=== PATIENT | male | born 2005 | race Hispanic/Latino ===

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

== ENCOUNTER 2024-04-01 17:01 | Emergency (ER) | payer SELFPAY ==
[~2024-04-01] VITALS: Ht 154.9 cm; Wt 72.6 kg
[~2024-04-01 17:01] MED LIST: ACET-2247 PO; D-ME1POW16 PO; IBUP-1552 PO
--- NOTE | 2024-04-01 17:33 | ERN ---
ED Note History of Present Illness Stated Complaint: ABDOMINAL PAIN,DIARRHEA Time Seen by MD: 17:04 Time Seen by Midlevel: 17:04 Dictation: The patient is a 18-year-old male with no past medical history who presents to the emergency department with complaints of generalized abdominal pain nausea, nonbloody vomiting, nonbloody diarrhea onset one week ago. Patient denies any fevers. Denies any urinary discomfort. Allergies: Coded Allergies: No Known Drug Allergies (Unverified Allergy, Unknown, 03/20/21) Home Meds Active Scripts Dicyclomine HCl (Bentyl) 20 Mg Tab, 1 TAB PO BID for irritable bowel symptoms for 30 Days, #60 TAB 0 Refills Prov:TESS MACE GLEASON GEAR GENERATOR 04/01/24 Ondansetron (Ondansetron Odt) 4 Mg Tab.rapdis, 4 MG PO Q6HPRN PRN for nausea, #16 TAB 0 Refills Prov:TESS MACE GLEASON GEAR GENERATOR 04/01/24 D-Methorphan/PE/Acetaminophen (Theraflu Ms Severe Cold Pckt) 1 Each Powd.pack, 1 EACH PO QIDP, #20 PACK Prov:LATHA GARCIA 03/20/21 Ibuprofen (Ibu) 400 Mg Tablet, 600 MG PO Q4H, #50 TAB Prov:LATHA GARCIA 03/20/21 Acetaminophen (Tylenol) 325 Mg Tablet, 650 MG PO Q4HPRN, #50 TAB Prov:LATHA GARCIA 03/20/21 Past Medical History Past Medical History: No Pertinent History Surgical History: None RN Note Reviewed/Agreed w/PFSH: Yes Review of System Dictation Constitutional: Negative for fever,chills, and weight loss Eyes: Negative for injury, pain,redness, and discharge ENT: Negative for injury,pain or swelling Cardiovascular: Negative for chest pain, palpitations, and edema Respiratory: Negative for shortness of breath, cough, and wheezing, Abdomen/GI: Negative for constipation. Positive for abdominal pain, nausea, vomiting, diarrhea. Back: Negative for injury and pain : Negative for injury, bleeding and discharge MS/Extremity: Negative for injury and deformity Skin: Negative for rash, and discoloration Neuro: Negative for headache, weakness, numbness, tingling, and seizure Psych: Negative for suicide ideation, homicidal ideation, and hallucinations Initial Vital Sign VS Vital Signs Date Time Temp Pulse Resp B/P (MAP) Pulse Ox O2 Delivery O2 Flow Rate FiO2 04/01/24 17:47 98.4 70 16 123/63 99 Room Air 0 Physical Exam Dictation Vital Signs reviewed General Appearance: Alert, oriented x 3, no acute distress, well developed, nourished. Head and Face: non-traumatic. Eyes: PERRL, pink conjunctivas, eyelid no trauma, anterior chamber with arcus senilis. Ears: Pinnas intact and no signs of trauma or erythema ear canals clear and no discharge TM no erythema Nose: No discharge, no bleeding. Oropharynx: Mouth normal, tongue pink. pharynx clear,no erythema, tonsils no exudates, no abscesses noted, mucous membrane moist Neck: Supple, non-tender, no thyromegaly, no masses, no JVD, no bruits Breast:Deferred Chest:No tenderness, no crepitus, no paradoxical movement, no retractions Lungs:Clear, well-ventilated, symmetric, no rales, no wheezing, no rhonchi, no stridor, good breath sounds bilaterally Heart: Regular rate, regular rhythm, no murmur, no gallops Vascular: no peripheral edema, Abdomen: Soft, positive bowel sounds, nondistended, no guarding, Nontender abdomen, no rebound, no masses no hepatomegaly, no splenomegaly, no Bryant's sign, no hernias. Rectal: Deferred Genital: Deferred Neurological: Normal speech, motor function intact, sensory function intact Musculoskeletal: Neck nontender, full range of motion, back nontender, full range of motion, Extremities: nontender, full range of motion Skin: Color pink, dry, no turgor, no rash, no lacerations, no abrasions, no contusions. Lymphatic: Deferred Results (Laboratory/Radiology) Laboratory/Radiology Laboratory Tests Test 04/01/24 17:26 04/01/24 18:23 White Blood Count 9.1 K/uL (4.8-10.8) Red Blood Count 5.47 MIL/uL (4.50-6.20) Hemoglobin 15.7 g/dL (14.0-18.0) Hematocrit 46.1 % (42-54) Mean Corpuscular Volume 84.3 fL (80-100) Mean Corpuscular Hemoglobin 28.7 pg (27.0-33.0) Mean Corpuscular Hemoglobin Concent 34.1 g/dL (32.0-36.0) Red Cell Distribution Width 13.2 % (11.0-15.5) Platelet Count 295 K/uL (130-400) Mean Platelet Volume 9.6 fL (7.5-10.5) Immature Granulocyte % (Auto) 0.2 % (0-1) Neutrophils (%) (Auto) 54.9 % (40.0-77.0) Lymphocytes (%) (Auto) 33.1 % (21.0-51.0) Monocytes (%) (Auto) 8.0 % (3.0-13.0) Eosinophils (%) (Auto) 3.0 % (0.0-8.0) Basophils (%) (Auto) 0.8 % (0.0-5.0) Neutrophils # (Auto) 5.0 K/uL (1.8-7.7) Lymphocytes # (Auto) 3.0 K/uL (1.0-4.8) Monocytes # (Auto) 0.7 K/uL (0.1-1.0) Eosinophils # (Auto) 0.27 K/uL (0.00-0.70) Basophils # (Auto) 0.07 K/uL (0.00-0.20) Absolute Immature Granulocyte (auto 0.02 K/uL (0-1) Nucleated Red Blood Cells 0.0 % (0.0-0.19) Sodium Level 136 mmol/L (136-145) Potassium Level 3.6 mmol/L (3.5-5.1) Chloride Level 99 mmol/L (101-111) L Carbon Dioxide Level 30 mmol/L (21-32) Blood Urea Nitrogen 10 mg/dL (7-18) Creatinine 0.8 mg/dL (0.5-1.3) Glomerular Filtration Rate Calc 131 mL/min (>90) Random Glucose 117 mg/dL (70-105) H Total Calcium 8.9 mg/dL (8.5-10.1) Total Bilirubin 0.5 mg/dL (0.2-1.0) Direct Bilirubin 0.1 mg/dL (0.0-0.3) Aspartate Amino Transf (AST/SGOT) 13 U/L (10-37) Alanine Aminotransferase (ALT/SGPT) 31 U/L (12-78) Alkaline Phosphatase 104 U/L (50-136) Total Protein 7.2 g/dL (6.0-8.3) Albumin 3.8 g/dL (3.5-5.0) Lipase 57 U/L (16-77) Urine Color LIGHT-YELLOW (YELLOW) Urine Appearance CLEAR (CLEAR) Urine pH 5.5 (5.0-8.0) Urine Specific [place] 1.025 (1.001-1.031) Urine Protein NEGATIVE mg/dL (NEGATIVE) Urine Glucose (UA) NEGATIVE mg/dL (NEGATIVE) Urine Ketones NEGATIVE mg/dL (NEGATIVE) Urine Occult Blood SMALL (NEGATIVE) H Urine Nitrate NEGATIVE (NEGATIVE) Urine Bilirubin NEGATIVE mg/dL (NEGATIVE) Urine Urobilinogen 0.2 mg/dL (0.2-1.0) Urine Leukocyte Esterase NEGATIVE Moises/uL Urine RBC 0-1 /HPF (0-1) Urine WBC 0-1 /HPF (0-1) Urine Bacteria None /HPF (None Seen) Labs Reviewed?: Yes ED Course ED Course Orders Procedure Category Date Status Time Cbc With Differential LAB 04/01/24 Complete 17:15 Urinalysis Profile LAB 04/01/24 Complete 17:15 0.9%Nacl 1000ml (Ns PHA 04/01/24 Complete 1000ml) 17:30 Morphine 4mg Syg PHA 04/01/24 Complete (Morphine 4mg Syg) 17:30 Ondansetron 4mg Inj PHA 04/01/24 Complete (Zofran 4mg Inj) 17:30 Lipase LAB 04/01/24 Complete 17:15 Basic Metabolic Panel LAB 04/01/24 Complete 17:15 Hepatic Function Panel LAB 04/01/24 Complete 17:15 Current Medications Medications (Trade) Dose Ordered Sig/Howie Route PRN Reason Start Time Stop Time Status Last Admin Dose Admin Morphine Sulfate (morPHINE 4MG SYG) 4 mg ONCE ONCE IVP 04/01/24 17:30 04/01/24 17:31 DC 04/01/24 19:10 Ondansetron HCl (zoFRAN 4MG INJ) 4 mg ONCE ONCE IVP 04/01/24 17:30 04/01/24 17:31 DC 04/01/24 19:10 Sodium Chloride 1,000 ml @ 0 mls/hr ONCE ONCE IV 04/01/24 17:30 04/01/24 17:31 DC 04/01/24 19:10 Vital Signs Date Time Temp Pulse Resp B/P (MAP) Pulse Ox O2 Delivery O2 Flow Rate FiO2 04/01/24 17:47 98.4 70 16 123/63 99 Room Air 0 Medical Decision Making MDM The patient is a 18-year-old male with no past medical history who presents to the emergency department with complaints of generalized abdominal pain nausea, nonbloody vomiting, nonbloody diarrhea onset one week ago. Patient denies any fevers. Denies any urinary discomfort. Differential diagnosis: Gastroenteritis, gastritis, appendicitis, dehydration, cholecystitis CBC showed no leukocytosis, no anemia, chemistry showed no hyponatremia, normal renal function, normal liver enzymes, urinalysis unremarkable. Patients symptoms probably related to gastroenteritis. Patient abdomen reassessed and no tenderness to palpation. Patient denies having anymore pain or nausea. Agrees to be discharged and follow up with PCP. Patient had not received medications for pain but states he is not having any pain and refused medications. Need for hospitalization: Patient does not meet criteria for hospitalization. There are no social concerns with this patient. DX & DISP Disposition: Discharge Departure Impression: Primary Impression: Gastroenteritis Additional Impressions: Nausea and vomiting, Diarrhea Condition: Stable Scripts Dicyclomine HCl (Bentyl) 20 Mg Tab 1 TAB PO BID for irritable bowel symptoms for 30 Days, #60 TAB 0 Refills Prov: TESS MACE GLEASON GEAR GENERATOR 04/01/24 Ondansetron (Ondansetron Odt) 4 Mg Tab.rapdis 4 MG PO Q6HPRN PRN for nausea, #16 TAB 0 Refills Prov: TESS MACE GLEASON GEAR GENERATOR 04/01/24 Additional Instructions: Please follow up with pcp in 2-3 days, return to ER if symptoms worsen, please continue oral hydration at home. FOLLOW-UP WITH PRIMARY CARE PROVIDER IN 1 TO 2 DAYS. TAKE MEDICATIONS DIRECTED HERE IN THE EMERGENCY ROOM. OKAY TO CONTINUE HOME MEDICATIONS UNLESS OTHERWISE DISCUSSED DURING YOUR VISIT IN THE EMERGENCY ROOM TODAY. RETURN TO YOUR NEAREST EMERGENCY ROOM IF SYMPTOMS WORSEN OR IF THERE IS NO IMPROVEMENT. CALL 911 IF YOU NEED IMMEDIATE ASSISTANCE. TAKE TYLENOL OR MOTRIN [id number] NEEDED AND IF NO CONTRAINDICATIONS ARE PRESENT. INCREASE ORAL HYDRATION. A WOUND CULTURE OR URINE CULTURE WAS ORDERED HERE IN THE EMERGENCY ROOM DEPARTMENT PLEASE FOLLOW-UP WITH PRIMARY CARE PROVIDER AND ADVISE THEM TO GET REPEAT PORTS FROM OUR FACILITY. IF YOU HAD ANY DESTINEY WRAP/SPLINTS THAT WERE APPLIED HERE, PLEASE DO NOT REMOVE THEM UNTIL YOU SEE YOUR PRIMARY CARE OR SPECIALTY. Referrals: LINUS STROUD MD (PCP) Time of Disposition: 19:14 I have reviewed the case, and I agree with, Diagnosis and Plan TESS MACE GLEASON GEAR GENERATOR Apr 01, 2024 17:33
[2024-04-01 17:36] LABS: BASOPHILS # (AUTO) 0.07 K/uL (0.00-0.20); BASOPHILS % (AUTO) 0.8 % (0.0-5.0); EOSINOPHILS # (AUTO) 0.27 K/uL (0.00-0.70); HEMATOCRIT 46.1 % (42-54); IMMATURE GRANULOCYTE ABSOLUTE 0.02 K/uL (0-1); LYMPHOCYTES % (AUTO) 33.1 % (21.0-51.0); MEAN CORPUSCULAR HEMOGLOBIN 28.7 pg (27.0-33.0); MEAN CORPUSCULAR HGB CONC 34.1 g/dL (32.0-36.0); MEAN CORPUSCULAR VOLUME 84.3 fL (80-100); MONOCYTES # (AUTO) 0.7 K/uL (0.1-1.0); NEUTROPHILS % (AUTO) 54.9 % (40.0-77.0); PLATELET COUNT (AUTO) 295 K/uL (130-400); RED BLOOD CELL COUNT(AUTO) 5.47 MIL/uL (4.50-6.20); RED CELL DISTRIBUTION WIDTH 13.2 % (11.0-15.5); WHITE BLOOD COUNT (AUTO) 9.1 K/uL (4.8-10.8)
[2024-04-01 17:43] LABS: CREATININE 0.8 mg/dL (0.5-1.3); POTASSIUM 3.6 mmol/L (3.5-5.1)
[2024-04-01 17:47] VITALS: BP_DIAS 63
[2024-04-01 17:49] LABS: ALBUMIN 3.8 g/dL (3.5-5.0); BILIRUBIN,DIRECT 0.1 mg/dL (0.0-0.3); BILIRUBIN,TOTAL 0.5 mg/dL (0.2-1.0); TOTAL PROTEIN, SERUM 7.2 g/dL (6.0-8.3)
[2024-04-01 18:33] LABS: APPEARANCE,URINE CLEAR (CLEAR); BILIRUBIN,URINE NEGATIVE (NEGATIVE); COLOR,URINE LIGHT-YELLOW (YELLOW); GLUCOSE, URINE (UA) NEGATIVE (NEGATIVE); KETONES,URINE NEGATIVE (NEGATIVE); LEUKOCYTE ESTERASE ,URINE NEGATIVE Leu/uL (NEGATIVE); NITRATE,URINE NEGATIVE (NEGATIVE); OCCULT BLOOD,URINE SMALL (NEGATIVE); PH,URINE 5.5 (5.0-8.0); PROTEIN,URINE NEGATIVE (NEGATIVE); UROBILINOGEN,URINE 0.2 mg/dL (0.2-1.0)
[2024-04-01 18:41] LABS: ADD UA MICROSCOPIC YES
[2024-04-01 18:43] LABS: MUCUS,URINE RARE LPF (None Seen); RBC,URINE 0-1 /HPF (0-1); WBC,URINE 0-1 /HPF (0-1)
[2024-04-01] MEDS ORDERED: DICY20TA2 PO (19:08)
[2024-04-01] MEDS ORDERED: ONDA-243 PO (19:08)
[2024-04-01] MEDS: morPHINE 4 MG SYG IVP ONE (19:10)
[2024-04-01] MEDS: 0.9%NACL 1000ML 1,000 ML IV ONE (19:10)
[2024-04-01] MEDS: ondanSETRON 4MG INJ IVP ONE (19:10)
[2024-04-01 19:20] VITALS: BP_SYST 100; PULSE 80; RESP 16; TEMP 98.3; O2SAT 98
== END 2024-04-01 19:33 | disposition home or self-care (01) ==
LOC: EDH 17:01
DX: K52.9 Noninfective gastroenteritis and colitis, unspecified (principal); Z79.899 Other long term (current) drug therapy
CPT/HCPCS: 99283; 96374; 80076; 80048; 83690; 85025; 81001; 36415; J7030; J2405; J2270